=== PATIENT | female | born 1980 | race Caucasian/White ===

== ENCOUNTER 2017-10-11 16:15 | Emergency (ER) | payer OTHER ==
[~2017-10-11] VITALS: Ht 157.5 cm; Wt 95.9 kg
[~2017-10-11 16:15] MED LIST: PRENATA2 PO; RANI150T3 PO
[2017-10-11 16:21] VITALS: TEMP 37; Ht 157.5 cm; Wt 95.9 kg
[2017-10-11] MEDS ORDERED: SODIUM CHLORIDE 0.9% 1000ML 2,000 ML IV STA (16:35)
[2017-10-11] MEDS ORDERED: ONDANSETRON INJ 2 MG/ML 2 ML VIAL IV STA (16:35)
--- NOTE | 2017-10-11 16:41 | EMERGENCY ROOM VISIT NOTE ---
History Report prepared by Wan: Rita Blevins Under the Supervision of: Dr. Spenser Blackmon M.D. First contact with patient: 16:26 Chief Complaint: VOMITING Stated Complaint: VOMITING,ABD PAIN Nursing Triage Summary: abdominal pain, N/V/D History of Present Illness The patient is a 36 year old female who presents to the Emergency Room with complaints of worsening abdominal pain beginning on Friday, three days ago. The patient reports her symptoms began with nausea and vomiting before developing into diarrhea. She denies any worsening abdominal pain with eating. The patient also reports urinary burning beginning two days ago. She denies any cough, fever, or chills. The patient went into walk in clinic today and was refereed to the ED. The patient reports her daughter was recently sick with vomiting. The patient denies any history of abdominal surgeries. Source of History: patient Onset: three days ago Position: abdomen Quality: other (pain) Timing: worsening Modifying Factors (Worsening): other (none) Associated Symptoms: + nausea, + vomiting, + diarrhea, + urinary symptoms, No fevers, No chills, No cough Review of Systems See HPI for pertinent positives and negatives. A total of ten systems were reviewed and were otherwise negative. Past Medical & Surgical Medical Problems: (1) vaginal after section Family History Patient reports no known family medical history. Social History Smoking Status: Never Smoker Marital Status: Housing Status: lives with family Current/Historical Medications Scheduled Ondasetron Odt (Zofran Odt), 4 MG SL Q6H Allergies Coded Allergies: Penicillins (Verified Allergy, Severe, RASH, 10/11/17) Physical Exam Vital Signs Date Time Temp Pulse Resp B/P (MAP) Pulse Ox O2 Delivery O2 Flow Rate FiO2 10/11/17 17:56 62 18 113/76 98 Room Air 10/11/17 17:07 79 10/11/17 16:21 37.0 90 18 136/83 98 Room Air Physical Exam GENERAL: Awake, alert, well-appearing, in no distress HENT: Normocephalic, atraumatic. Oropharynx unremarkable. EYES: Normal conjunctiva. Sclera non-icteric. NECK: Supple. No nuchal rigidity. FROM. No JVD. RESPIRATORY: Clear to auscultation. CARDIAC: Regular rate, normal rhythm. Extremities warm and well perfused. Pulses equal. ABDOMEN: Mild generalized abdominal pain, no peritoneal signs. Soft, non- distended. No rebound or guarding. No masses. RECTAL: Deferred. MUSCULOSKELETAL: Chest examination reveals no tenderness. The back is symmetrical on inspection without obvious abnormality. There is no CVA tenderness to palpation. No joint edema. LOWER EXTREMITIES: Calves are equal size bilaterally and non-tender. No edema. No discoloration. NEURO: Normal sensorium. No sensory or motor deficits noted. SKIN: No rash or jaundice noted. Medical Decision & Procedures Laboratory Results 10/11/17 16:55 Red Blood Count 4.81, Mean Corpuscular Volume 84.6, Mean Corpuscular Hemoglobin 30.1, Mean Corpuscular Hemoglobin Concent 35.6, Mean Platelet Volume 10.0, Neutrophils (%) (Auto) 69.2, Lymphocytes (%) (Auto) 23.5, Monocytes (%) (Auto) 6.2, Eosinophils (%) (Auto) 0.7, Basophils (%) (Auto) 0.1, Neutrophils # (Auto) 5.03, Lymphocytes # (Auto) 1.71, Monocytes # (Auto) 0.45, Eosinophils # (Auto) 0.05, Basophils # (Auto) 0.01 10/11/17 16:55 Test 10/11/17 16:44 10/11/17 16:55 Urine Color YELLOW Urine Appearance CLOUDY (CLEAR) Urine pH 5.5 (4.5-7.5) Urine Specific Philip 1.012 (1.000-1.030) Urine Protein NEG (NEG) Urine Glucose (UA) NEG (NEG) Urine Ketones NEG (NEG) Urine Occult Blood TRACE (NEG) Urine Nitrite NEG (NEG) Urine Bilirubin NEG (NEG) Urine Urobilinogen NEG (NEG) Urine Leukocyte Esterase NEG (NEG) Urine WBC (Auto) 1-5 /hpf (0-5) Urine RBC (Auto) 0-4 /hpf (0-4) Urine Hyaline Casts (Auto) 0 /lpf (0-5) Urine Epithelial Cells (Auto) >30 /lpf (0-5) Urine Bacteria (Auto) NEG (NEG) Urine Test NEG (NEG) White Blood Count 7.27 K/uL (4.8-10.8) Red Blood Count 4.81 M/uL (4.2-5.4) Hemoglobin 14.5 g/dL (12.0-16.0) Hematocrit 40.7 % (37-47) Mean Corpuscular Volume 84.6 fL (80-100) Mean Corpuscular Hemoglobin 30.1 pg (25-34) Mean Corpuscular Hemoglobin Concent 35.6 g/dl (32-36) Platelet Count 303 K/uL (130-400) Mean Platelet Volume 10.0 fL (7.4-10.4) Neutrophils (%) (Auto) 69.2 % Lymphocytes (%) (Auto) 23.5 % Monocytes (%) (Auto) 6.2 % Eosinophils (%) (Auto) 0.7 % Basophils (%) (Auto) 0.1 % Neutrophils # (Auto) 5.03 K/uL (1.4-6.5) Lymphocytes # (Auto) 1.71 K/uL (1.2-3.4) Monocytes # (Auto) 0.45 K/uL (0.11-0.59) Eosinophils # (Auto) 0.05 K/uL (0-0.5) Basophils # (Auto) 0.01 K/uL (0-0.2) RDW Standard Deviation 38.2 fL (36.4-46.3) RDW Coefficient of Variation 12.4 % (11.5-14.5) Immature Granulocyte % (Auto) 0.3 % Immature Granulocyte # (Auto) 0.02 K/uL (0.00-0.02) Anion Gap 10.0 mmol/L (3-11) Est Creatinine Clear Calc Drug Dose 111.6 ml/min Estimated GFR () 117.8 Estimated GFR (Non- 101.6 BUN/Creatinine Ratio 14.0 (10-20) Calcium Level 8.6 mg/dl (8.5-10.1) Total Bilirubin 0.7 mg/dl (0.2-1) Direct Bilirubin 0.2 mg/dl (0-0.2) Aspartate Amino Transf (AST/SGOT) 35 U/L (15-37) Alanine Aminotransferase (ALT/SGPT) 64 U/L (12-78) Alkaline Phosphatase 67 U/L (45-117) Total Protein 8.0 gm/dl (6.4-8.2) Albumin 3.8 gm/dl (3.4-5.0) Lipase 88 U/L (73-393) Influenza Type A Antigen Neg for Influ A (NEG) Influenza Type B Antigen Neg for Influ B (NEG) Laboratory results reviewed by me Medications Administered Medications (Trade) Dose Ordered Sig/Liliya Route Start Time Stop Time Status Last Admin Dose Admin Sodium Chloride 2,000 ml @ 999 mls/hr Q2H1M STAT IV 10/11/17 16:35 10/11/17 18:35 DC 10/11/17 16:53 999 MLS/HR Ondansetron HCl (Zofran Inj) 4 mg NOW STAT IV 10/11/17 16:35 10/11/17 16:38 DC 10/11/17 16:52 4 MG Famotidine (Pepcid Tab) 20 mg NOW ONCE PO 10/11/17 16:45 10/11/17 16:46 DC 10/11/17 16:45 20 MG Potassium Chloride (Klor-Con M10) 40 meq NOW STAT PO 10/11/17 17:51 10/11/17 17:52 DC 10/11/17 17:51 40 MEQ Acetaminophen (Tylenol Tab) 1,000 mg NOW STAT PO 10/11/17 17:52 10/11/17 17:53 DC 10/11/17 17:52 1,000 MG ED Course 1628: The patient was evaluated in room B11B. A complete history and physical exam was performed. 1758: I updated the patient on her test results. 4: I reevaluated the patient. Discussed results and discharge instructions: She verbalized understanding and agreement. The patient is ready for discharge. Medical Decision I reviewed the patient's past medical history, medications, and the nursing notes as described above. Differential diagnosis: Etiologies such as appendicitis, diverticulitis, PUD, biliary pathology, UTI, pancreatitis, obstruction, mesenteric ischemia, aortic pathology, infections, inflammatory bowel disease, renal colic, as well as others were entertained. The patient is a 36-year-old woman who presents emergency department with nausea vomiting diarrhea over the past several days, seen in urgent care today and sent to the ED for evaluation per hpi. The patient is in no acute distress , afebrile stable vital signs. She has mild generalized abdominal tenderness without any peritoneal signs. Bedside ultrasound negative for gallstones or pericholecystic fluid, grossly normal CBD. Labs unremarkable including WBC within normal limits. Patient feeling improved with IV fluid hydration. Sx most likely related to a viral gastroenteritis. Findings and plan for follow-up reviewed with patient. Patient agreeable and d/c'd per discharge instructions. Medication Reconcilliation Current Medication List: was personally reviewed by me Blood Pressure Screening Patient's blood pressure: Normal blood pressure Impression Primary Impression: Gastroenteritis Scribe Attestation The scribe's documentation has been prepared under my direction and personally reviewed by me in its entirety. I confirm that the note above accurately reflects all work, treatment, procedures, and medical decision making performed by me. Departure Information Dispostion Home / Self-Care Prescriptions Ondasetron Odt (ZOFRAN ODT) 4 Mg Tab 4 MG SL Q6H for Nausea, #10 TAB Prov: Edwardo De Los Santos M.D. 10/11/17 Referrals Johanna Tamayo M.D. (PCP) Forms HOME CARE DOCUMENTATION FORM, IMPORTANT VISIT INFORMATION Patient Instructions ED Gastroenteritis Viral, My [facility] Additional Instructions Please follow up with your primary care physician in the next 1-3 days for re- evaluation. You likely have a viral gastroenteritis. Otherwise, your exam, lab results, and bedside gallbladder ultrasound did not show signs of an emergent condition at this time. Acetaminophen or ibuprofen for pain and fevers as needed. Zofran as needed for nausea. Drink plenty of fluids to ensure hydration. Return to the emergency department for worsening symptoms as described in the accompanying instructions.
[2017-10-11] MEDS ORDERED: FAMOTIDINE 20 MG TAB PO ONE (16:45)
[2017-10-11 17:08] LABS: BASO % 0.1 %; BASO ABS # 0.01 K/uL (0-0.2); EOS % 0.7 %; EOS ABS # 0.05 K/uL (0-0.5); HEMATOCRIT 40.7 % (37-47); HEMOGLOBIN 14.5 g/dL (12.0-16.0); IG# 0.02 K/uL (0.00-0.02); LYMPH % 23.5 %; LYMPH ABS # 1.71 K/uL (1.2-3.4); MEAN CELL VOLUME 84.6 fL (80-100); MEAN CORPUSCULAR HEMOGLOBIN 30.1 pg (25-34); MEAN CORPUSCULAR HGB CONC 35.6 g/dl (32-36); MONO % 6.2 %; MONO ABS # 0.45 K/uL (0.11-0.59); NEUT % 69.2 %; NEUT ABS # 5.03 K/uL (1.4-6.5); PLATELET COUNT 303 K/uL (130-400); RED CELL DISTRIBUTION WIDTH CV 12.4 % (11.5-14.5); RED CELL DISTRIBUTION WIDTH SD 38.2 fL (36.4-46.3); WHITE BLOOD COUNT 7.27 K/uL (4.8-10.8)
[2017-10-11 17:29] LABS: ALBUMIN 3.8 gm/dl (3.4-5.0); CALCIUM 8.6 mg/dl (8.5-10.1); CREATININE 0.76 mg/dl (0.60-1.20); POTASSIUM 3.3 mmol/L (3.5-5.1)
[2017-10-11 17:39] LABS: INFLUENZA B ANTIGEN Neg for Influ B (NEG)
[2017-10-11] MEDS ORDERED: POTASSIUM CHLORIDE 10 MEQ TABCR PO STA (17:51)
[2017-10-11] MEDS ORDERED: ACETAMINOPHEN 500 MG TAB PO STA (17:52)
[2017-10-11] MEDS ORDERED: ONDA4TAB10 SL (17:54)
[2017-10-11 17:56] VITALS: BP 113/76; PULSE 62; O2SAT 98
== END 2017-10-11 18:25 | disposition home or self-care (01) ==
LOC: C.EDB 16:17
DX: K52.9 Noninfective gastroenteritis and colitis, unspecified (principal); Z88.0 Allergy status to penicillin

== ENCOUNTER 2019-03-10 08:49 | Inpatient (IN) ==
[2019-03-10] MEDS ORDERED: OXYTOCIN 30 UNITS/500 ML BAG IV PRN ×3 (09:04→16:09)
[2019-03-10] MEDS ORDERED: CEFAZOLIN 2000MG 2,000 MG/15 ML SYR IV STA (09:15)
[2019-03-10] MEDS: LACTATED RINGER'S 1,000 ML IV PRN ×2 (09:30→10:57)
--- NOTE | 2019-03-10 09:32 | History & Physical Report ---
Date of Service March 10, 2019 Assessment & Plan (1) Encounter for induction of labor: IUP at 40+ weeks with prior C/S followed by 3 successful VBACs. for IOL for post term will start pitocin augmentation of labor plan AROM after regular contraction pattern has been achieved will get epidural analgesia prior to AROM Present on Admission?: Yes (2) Previous delivery affecting : Type & screen ordered anticipate vaginal . Present on Admission?: Yes History of Present Illness Primary Care Provider: NO PCP Patient is a 38 yo white female EDC 03/08/19 who presents for IOL because of post term . Her first delivery was a LTCS followed by 3 successful VBACs. complicated this time by AMA , GBS (+) Allergies Allergy/AdvReac Type Severity Reaction Status Date / Time Penicillins Allergy Severe RASH Verified 03/09/19 10:56 Home Medications Home Medications Medication Instructions Recorded Confirmed Type calcium carbonate PO 02/13/19 03/09/19 History cholecalciferol (vitamin D3) 2,000 PO cap 02/13/19 03/09/19 History unit capsule famotidine 20 mg tablet PO Q12H #60 tab 02/13/19 03/09/19 History folic acid 20 mg capsule PO cap 02/13/19 03/09/19 History 1 tab PO DAILY 02/13/19 03/09/19 History vitamin,calcium,ganekwrr-natq-ucwjx acid tablet Patient History Medical History H/O varicella Surgical History S/P section S/P wisdom tooth extraction Family History Aunt Breast cancer MATERNAL AUNT Grandfather (Paternal) Lung cancer Social History marital status: Smoking Status: Never smoker Hx Alcohol Use: No Hx Substance Use: No Review of Systems All systems reviewed & are unremarkable except as noted in HPI & below Physical Exam Constitutional: WD/WN, vitals as above Respiratory: normal respiratory effort, lungs clear to auscultation Cardiovascular: RRR, no murmur, no edema Gastrointestinal (Abdomen): normal bowel sounds, soft, nontender, no hepatosplenomegaly Psychiatric: A+Ox3, euthymic affect Genitourinary: OB Exam Abdomen: + vertex, + estimated weight (6-7 pounds) and + irregular contractions Manual OB Exam: + cervical dilation 3 cm, + cervical effacement 70% and + station -2 (posterior but soft) OB Exam Monitor Tracing: + external FHT monitor used, + external uterine monitor used, + category I and + normal FHT variability Results & Data Vital Signs (Past 12 Hours) Vital Signs Pulse BP 03/10/19 09:08 85 125/79 Code Status & VTE Plan VTE Prophylaxis Plan VTE Prophylaxis will be ordered: No
[2019-03-10 09:42] LABS: Hematocrit (blood only) 35.6 % (37-47); Hemoglobin 13.1 g/dL (12.0-16.0); Mean Corpuscular Volume 84.2 fL (80-100); Mean Platelet Volume 10.5 fL (7.4-10.4); Platelet Count 241 K/uL (130-400); RDW Coefficient of Variation 12.9 % (11.5-14.5); RDW Standard Deviation 39.1 fL (36.4-46.3); Red Blood Count 4.23 M/uL (4.2-5.4); White Blood Count 8.44 K/uL (4.8-10.8)
[2019-03-10 09:43] LABS: Mean Corpuscular Hgb Conc 36.8 g/dL (32-36)
[2019-03-10] MEDS ORDERED: BUPIVACAINE 0.25% 30 ML VIAL ONE (12:29)
[2019-03-10] MEDS ORDERED: ePHEDrine sulfate 50 MG/ML AMP ONE (12:29)
[2019-03-10] MEDS ORDERED: fentaNYL citrate 100 MCG/2 ML VIAL ONE (12:29)
[2019-03-10] MEDS ORDERED: fentaNYL 2MCG/ML ROPIV 1.25MG/ML 100 ML BAG EPI ONE (12:30)
--- NOTE | 2019-03-10 12:36 | Anesthesiology Consultation ---
Date of Service March 10, 2019 Assessment & Plan (1) Encounter for pre-operative examination: Chart Review Chart Review: Acceptable Risk for Labor Epidural Consults Requested none ASA ASA2 Proposed Anesthesia Anesthesia Type: Labor Epidural Risk / Benefits Reviewed With: PT / POA / Parent / Guardian, Accepts Plan and Informed Consent Obtained History Height/Weight Height: 5 ft 2 in Weight: 97.976 kg Allergies Allergy/AdvReac Type Severity Reaction Status Date / Time Penicillins Allergy Severe RASH Verified 03/09/19 10:56 Medications Home Medications Medication Instructions Recorded Confirmed Last Taken calcium carbonate PO 02/13/19 03/09/19 Unknown cholecalciferol (vitamin D3) 2,000 PO cap 02/13/19 03/09/19 Unknown unit capsule famotidine 20 mg tablet PO Q12H #60 tab 02/13/19 03/09/19 Unknown folic acid 20 mg capsule PO cap 02/13/19 03/09/19 Unknown 1 tab PO DAILY 02/13/19 03/09/19 Unknown vitamin,calcium,nbautcfu-zols-ijmqw acid tablet Active Medications Generic Name Dose Route Start Last Admin Trade Name Freq PRN Reason Stop Dose Admin Lactated Ringer's 1,000 mls @ 125 mls/hr 03/10/19 09:04 03/10/19 10:57 Lr IV 03/12/19 09:03 125 mls/hr .Q8H PRN Infusion L&D Protocol Protocol Oxytocin 30 units in 500 mls @ 5 mls/hr 03/10/19 09:04 03/10/19 10:50 Pitocin IV 03/12/19 09:03 0.3 units/hr .Q24H PRN 5 mls/hr Labor Induction/Augmentation Titration Protocol 0.3 UNITS/HR Past Medical History Medical History H/O varicella Exercise / Class Metabolic Activity II 4-5 Yardwork/Stairs/Walk up hill Past Family History Family History Aunt Breast cancer MATERNAL AUNT Grandfather (Paternal) Lung cancer Past Surgical History Surgical History S/P section S/P wisdom tooth extraction Past Anesthesia History No Hx of Anesthesia Complications and No Family Hx of Anesthesia Complications History of PONV No Hx of PONV and No Hx of Motion Sickness Social History Smoking Status: Never smoker Hx Alcohol Use: No Hx Substance Use: No Physical Exam Vital Signs Last Vital Signs Temp 98.2 F 03/10/19 12:26 Pulse 65 03/10/19 12:24 Resp 20 03/10/19 12:23 BP 135/69 03/10/19 12:24 ENMT Mouth: no dentition abnormality Thyromental Distance: > or= 3.5 Finger Breadths Mallampati Class: II Neck normal visual inspection Respiratory normal respiratory effort Auscultation: lungs clear to auscultation bilaterally Cardiovascular Rate/Rhythm: regular rate and regular rhythm Testing Laboratory Results 03/10/19 09:32 Blood Type A Positive 03/10/19 09:32 Antibody Screen NEGATIVE 03/10/19 09:32
[2019-03-10] MEDS ORDERED: NALOXONE HCL 1 MG in SODIUM CHLORIDE 0.9% 1000ML 1,000 ML IV PRN (12:55)
[2019-03-10] MEDS ORDERED: ONDANSETRON INJ 2 MG/ML 2 ML VIAL IV PRN (12:55)
[2019-03-10] MEDS ORDERED: fentaNYL 2MCG/ML ROPIV 1.25MG/ML 100 ML BAG EPI PRN (12:55)
[2019-03-10] MEDS ORDERED: NALBUPHINE HCL INJ 10 MG/ML AMP IV PRN (12:55)
[2019-03-10] MEDS ORDERED: ePHEDrine sulfate 50 MG/ML AMP IV PRN (12:55)
[2019-03-10] MEDS ORDERED: DiphenhydrAMINE HCL 50 MG/ML VIAL IV PRN (12:55)
[2019-03-10] MEDS ORDERED: NALOXONE HCL 0.4 MG/1 ML VIAL/CARP IV PRN (12:55)
[2019-03-10] MEDS ORDERED: SUPERCREAM 0.870% 15 GM JAR EXT PRN (16:09)
[2019-03-10] MEDS ORDERED: HYDROCORTISONE ACETATE 25 MG SUPP PR PRN (16:09)
[2019-03-10] MEDS ORDERED: BENZOCAINE 20% AER SPR 82.5 GM CAN EXT PRN (16:09)
[2019-03-10] MEDS ORDERED: OXYCODONE/ACETAMINOPHEN 5mg/325mg TAB PO PRN (16:09)
[2019-03-10] MEDS ORDERED: DIPHTHERIA/TETANUS/PERTUSSIS 0.5 ML SYR/VIAL IM ONE (16:09)
[2019-03-10] MEDS ORDERED: CEFAZOLIN 1000MG 1,000 MG/7.5 ML SYR IV PRN (17:00)
--- NOTE | 2019-03-10 17:09 | Delivery Summary ---
DATE OF OPERATION: 03/10/2019 HOSPITAL COURSE: The patient is a 38-year-old 5, para 4-0-0-4 white female, EDC of 03/08/2019 who presented for induction of labor. She is a prior section with her first she has had 3 successful vaginal births. Pitocin was begun. Membranes were ruptured at 4 cm dilation for clear fluid. She progressed rapidly at that point under effective epidural analgesia to full dilation and +3 station. She pushed through 1 contraction for delivery of a viable female . The cord was somewhat short, but the was able to be placed on the mother's abdomen for attention and drying. There was vigorous crying upon delivery. The cord was then clamped and cut after 30 seconds. The placenta was then expressed intact with a 3-vessel cord after cord blood was obtained. There was no perineal lacerations or abrasions. Estimated blood loss was 250 mL. Mother and infant were doing well after delivery. I attest to the content of the Intraoperative Record and any orders documented therein. Any exception s are noted below.
--- NOTE | 2019-03-10 17:19 | Anesthesia Procedure Note ---
Date of Service March 10, 2019 Anesthesia Post Epidural Note Vital Signs Vital Signs: Temp Pulse Resp BP Pulse Ox 98.1 F 59 L 18 129/69 100 03/10/19 14:23 03/10/19 17:04 03/10/19 16:35 03/10/19 17:04 03/10/19 15:58 Pain Intensity Lower Abdomen: Pain Intensity: 5 Notes Mental Status: alert / awake / arousable and participated in evaluation Nausea / Vomiting: adequately controlled Pain: adequately controlled Airway Patency, RR, SpO2: stable & adequate BP & HR: stable & adequate Hydration State: stable & adequate Neuraxial Anesthesia: was administered and sensory block is resolving Anesthetic Complications: no major complications apparent and Pt Satisfied with anesthetic care Epidural: Removed without complications and With tip intact
[2019-03-10] MEDS: IBUPROFEN 600 MG TAB PO PRN ×2 (19:38→23:45)
[2019-03-10] MEDS: DOCUSATE SODIUM 100 MG CAP PO SCH (21:12)
[2019-03-11] MEDS: ACETAMINOPHEN 325 MG TAB PO PRN ×3 (01:31→17:39)
[2019-03-11] MEDS: IBUPROFEN 600 MG TAB PO PRN ×4 (06:27→20:45)
[2019-03-11 07:04] LABS: Hematocrit (blood only) 35.9 % (37-47); Hemoglobin 12.6 g/dL (12.0-16.0); Mean Corpuscular Hemoglobin 30.2 pg (25-34); Mean Corpuscular Hgb Conc 35.1 g/dL (32-36); Mean Corpuscular Volume 86.1 fL (80-100); Mean Platelet Volume 11.3 fL (7.4-10.4); Platelet Count 230 K/uL (130-400); RDW Standard Deviation 40.7 fL (36.4-46.3); Red Blood Count 4.17 M/uL (4.2-5.4); White Blood Count 10.06 K/uL (4.8-10.8)
--- NOTE | 2019-03-11 07:10 | Obstetrical Progress Note ---
Date of Service March 11, 2019 Assessment & Plan (1) Encounter for care and examination after delivery: satisfactory course successful GBS (+) continue current care plan Day #:: 1 Subjective Ambulation: ambulating normally Voiding: no voiding problems Passing Gas:: Yes Diet Tolerance:: regular diet Lochia:: Small Feeding Type:: breast feeding Physical Exam Constitutional WD/WN, vitals as above Cardiovascular Extremities: no calf tenderness Genitourinary OB Exam Abdomen: + fundal height Fundus: + firm and + relation to umbilicus (2 below ) Results & Data Vital Signs (Past 12 Hours) Vital Signs Temp Pulse Pulse Resp BP BP Pulse Ox 03/11/19 03:35 98.2 F 70 18 130/68 03/10/19 23:40 98.2 F 69 16 118/71 03/10/19 19:20 98.2 F 80 18 134/72 97
[2019-03-11] MEDS: DOCUSATE SODIUM 100 MG CAP PO SCH ×2 (08:58→20:38)
[2019-03-11] MEDS: PRENATAL VITAMIN 1 TAB PO SCH (08:58)
[2019-03-11] MEDS ORDERED: BISACODYL 5 MG TABEC PO SCH (20:00)
[2019-03-12] MEDS: IBUPROFEN 600 MG TAB PO PRN ×2 (03:45→08:02)
--- NOTE | 2019-03-12 07:08 | Obstetrical Progress Note ---
Date of Service March 12, 2019 Assessment & Plan (1) Encounter for care and examination after delivery: Patient doing well. Stable for Discharge Subjective Ambulation: ambulating normally Voiding: no voiding problems Passing Gas:: Yes Diet Tolerance:: regular diet Lochia:: Moderate Feeding Type:: breast feeding Current Pain Level(1-10): 2 Physical Exam Gastrointestinal (Abdomen) normal bowel sounds, soft, nontender, no hepatosplenomegaly Genitourinary OB Exam Abdomen: + fundal height Fundus: + firm and + relation to umbilicus (Below); not tender and not boggy Results & Data Vital Signs (Past 12 Hours) Vital Signs Temp Pulse Resp BP Pulse Ox 03/12/19 03:55 36.5 C 58 L 16 126/79 98 03/11/19 23:00 36.7 C 60 18 143/75 H
[2019-03-12 07:19] LABS: Hematocrit (blood only) 35.6 % (37-47); Hemoglobin 12.3 g/dL (12.0-16.0)
[2019-03-12] MEDS: DOCUSATE SODIUM 100 MG CAP PO SCH (08:02)
[2019-03-12] MEDS: PRENATAL VITAMIN 1 TAB PO SCH (08:02)
[2019-03-12] MEDS ORDERED: BISACODYL 10 MG SUPP PR PRN (09:00)
== END 2019-03-12 15:20 | disposition home or self-care (01) | DRG 807 ==
LOC: 4S1 08:49 → 4S2 18:25